=== PATIENT | female | born 1960 | race Caucasian/White ===

== ENCOUNTER 2023-10-31 11:16 | Outpatient (AMB) | payer OTHER, SELFPAY ==
--- NOTE | 2023-10-31 11:20 | A.OFFPC_ITS ---
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 Pill to stop drinking. Allergies sulfar Allergy (Unknown, Uncoded 10/31/23 11:22) unable to breath Medication List - Last Reconciled 10/31/23 by Belia Ramirez MD lorazepam 0.5 - 1 mg PO BEDTIME PRN mometasone 100 mcg/actuation (Asmanex HFA) 2 puffs inhalation BID trazodone 100 mg PO BEDTIME Tobacco use date assessed: 10/31/23 Dental Screening Dental Screen Date: 10/31/23 Did you have a dental visit in the last 12 months?: Yes Did you have a dental problem in the last 6 months where you did not have access to dental care?: No Was dental information given to patient?: Patient has dentist HPI HPI Comments History of Present Illness Details This is s a 63 year old female with a past medical history of anxiety, insomnia, arthritis presenting for physical exam Anxiety: On lorazepam Insomnia: Stable on trazodone Pulled back a few weeks ago. Using otc meds ice/heat. 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 1. Little interest or pleasure in doing things: not at all 2. Feeling down, depressed, or hopeless: not at all 3. Trouble falling or staying asleep, or sleeping too much: not at all 4. Feeling tired or having little energy: not at all 5. Poor appetite or overeating: not at all 6. Feeling bad about yourself - or that you are a failure or have let yourself or your family down: not at all 7. Trouble concentrating on things, such as reading the newspaper or watching television: not at all 8. Moving or speaking so slowly that other people could have noticed. Or the opposite - being so fidgety or restless that you have been moving around a lot more than usual: not at all 9. Thoughts that you would be better off or of hurting yourself in some way: not at all Total score: 0 Depression Screening Interpretation: Negative Depression Screening Done: Yes 30260 - PHQ-9 Billing: Yes Source: Developed by Drs. Arnoldo Martinez, Elana Fisher, Petey Meza and colleagues, with an educational celine from [employer]. Thrive Questionnaire Date Thrive assessed: 10/31/23 I am a: Patient Within the past 12 months, did the food you bought not last and you didn't have the money to get more?: Never true Within the past 12 months, did you worry whether your food would run out before you got money to buy more?: Never true Do you have trouble paying for medicines?: No Do you have trouble getting transportation to medical appointments?: No Do you have trouble paying your heating and electricity bill?: No Do you have trouble taking care of your child, family member or friend?: No Do you have trouble with day-to-day activities such as bathing, preparing meals, shopping, managing finances, etc.?: No Are you currently unemployed and looking for a job?: No Are you interested in more education?: No Please select the resources that you would like help with: None Currently or been in a relationship where the following occur: no concerns reported THRIVE Score: 0 AUDIT C Alcohol Use Questionnaire (AUDIT-C) 1. How often do you have a drink containing alcohol?: 2-3 times a week 2. How many drinks containing alcohol do you have on a typical day when you are drinking?: 5 or 6 3. How often do you have six or more drinks on one occasion?: Daily or almost daily Total Score: 9 KIAH-7 AMB Questionnaire KIAH-7 Date KIAH - 7 assessed: 10/31/23 Feeling nervous, anxious, or on edge: 1 = Several days Not being able to stop or control worryin = Several days Worrying too much about different things: 1 = Several days Trouble relaxin = Several days Being so restless that it is hard to sit still: 1 = Several days Becoming easily annoyed or irritable: 1 = Several days Feeling afraid as if something awful might happen: 1 = Several days Total KIAH-7 score (0-4 normal; 5-9 mild; 10-14 moderate; 15-21 severe): 7 Source: Developed by Drs. Arnoldo Martinez, Elana Fisher, Petey Meza and colleagues, with an educational celine from [employer]. KIAH-7 Assessment Billing KIAH-7 Assessment Tool: KIAH-7 Assessment 90208 ACT Questionnaire In the past 4 weeks, how much of the time did your asthma keep you from getting as much done at work, school or at home?: A little of the time During the past 4 weeks, how often have you had shortness of breath?: 3-6 times a week During the past 4 weeks, how often did your asthma symptoms wake you up at night or earlier than usual in the morning?: Not at all During the past 4 weeks, how often have you had to use your rescue inhaler or nebulizer medication?: Once a week or less How would you rate your asthma control during the past 4 weeks?: Somewhat controlled ACT Interpretation: Positive Score: 19 Review of Systems Const Details: ROS CONSTITUTIONAL: Denies weight loss, fever and chills. HEENT: Denies changes in vision and hearing. RESPIRATORY: Denies SOB and cough. CV: Denies palpitations and CP GI: Denies abdominal pain, nausea, vomiting and diarrhea. : Denies dysuria and urinary frequency. MSK: see HPI SKIN: Denies rash and pruritus. NEUROLOGICAL: Denies headache PSYCHIATRIC: Denies recent changes in mood. Physical exam (Primary Care) Vital Signs: Last Vital Signs Temp 98.6 F 10/31/23 11:29 Pulse 60 10/31/23 11:29 Resp 14 10/31/23 11:29 BP 102/68 10/31/23 11:29 Pulse Ox 98 10/31/23 11:29 Oxygen Delivery Method Room Air 10/31/23 11:29 PHYSICAL EXAM: GENERAL: Alert and oriented x 3. NAD EYES: EOMI. Anicteric. HENT: Moist mucous membranes. No scleral icterus. No cervical lymphadenopathy. LUNGS: Clear to auscultation bilaterally. CARDIOVASCULAR: Regular rate and rhythm. No murmur. No JVD. ABDOMEN: Soft, non-tender +bs EXTREMITIES: No edema. Non-tender. SKIN: No rashes or lesions. Warm. NEUROLOGIC: No focal neurological deficits. CN II-XII grossly intact PSYCHIATRIC: Cooperative. Appropriate mood and affect BMI result Body Mass Index 23.3 Tobacco/Smoking Status: Tobacco use Status Tobacco use date assessed 10/31/23 10/31/23 11:34 Patient Tobacco Use Status Former Tobacco user 10/31/23 11:34 e-Cigarette/Vaping Use Never Used 10/31/23 11:34 PHQ-9: PHQ-9 Score PHQ-9: Total score 0 10/31/23 16:11 Depression Screening Interpretation: Negative Thrive Assessment: Date of Thrive Assessment Date Thrive assessed 10/31/23 10/31/23 11:53 Currently or been in a relationship where the following occur: no concerns reported Assessment and Plan Assessment & Plan (1) Physical exam: Code(s): Z00.00 - Encounter for general adult medical examination without abnormal findings Plan: The patient was seen today for preventive annual exam. As part of this exam we assessed/discussed Screening for tobacco use and provide tobacco cessation interventions for those who use tobacco products. Screening for alcohol misuse and provide behavioral counseling interventions to reduce alcohol misuse in individuals who engage in risky or hazardous drinking. Screening for women of childbearing age for intimate partner violence, and those who screen positive should be provided with or referred to intervention services. Physicians should screen adults for depression when staff-assisted depression care supports are in place to ensure accurate diagnosis, effective treatment, and follow-up. All women planning or capable of should take a daily folic acid supplement of 400 to 800 mcg. High-risk sexually active adults should be counseled on risk reduction for sexually transmitted infections. High-risk women should be screened for: STI All adults 65 years and younger should be screened for human immunodeficiency virus. Adults should be screened for elevated body mass index. Patients with obesity should be offered intensive counseling and behavioral interventions to promote sustained weight loss. Adults should be screened for high blood pressure. Asymptomatic adults with sustained blood pressure greater than 135/80 mm Hg (treated or untreated) should be screened for type 2 diabetes mellitus. 36 Women 55 to 79 years of age should take approximately 75 mg of aspirin per day when the net benefit of ischemic stroke reduction outweighs the increased risk of gastrointestinal hemorrhage. Women should be screened for cervical cancer with Pap tests beginning at 21 years of age. Low-risk women should receive Pap testing every three years. Co- testing for human papillomavirus is an option beginning at 30 years of age, and can extend the screening interval to five years. Cervical cancer screening should be discontinued at 65 years of age or after total hysterectomy if the woman has a benign gynecologic history. Women 50 to 74 years of age should be screened for breast cancer with mammography biennially. Mammography should be considered in women 40 to 49 years of age based on each patient's values and the potential benefits and harms. Adults 50 to 75 years of age should be screened for colorectal cancer Routine screening for ovarian cancer with bimanual examination, transvaginal ultrasonography, or cancer antigen 125 testing is not recommended. Women 65 years and older should be screened for osteoporosis. (2) Moderate persistent asthma: Code(s): J45.40 - Moderate persistent asthma, uncomplicated Qualifiers: Asthma complication type: uncomplicated Qualified Code(s): J45.40 - Mod erate persistent asthma, uncomplicated (3) Insomnia: Code(s): G47.00 - Insomnia, unspecified (4) Anxiety: Code(s): F41.9 - Anxiety disorder, unspecified Orders: Orders Lipid Panel 10/31/23 F41.9 - Anxiety disorder, unspecified, G47.00 - Insomnia, unspecified, J45.40 - Moderate persistent asthma, uncomplicated, Z00.00 - Encounter for general adult medical examination without abnormal findings Hemoglobin A1c 10/31/23 E78.5 - Hyperlipidemia, unspecified, Z13.228 - Encounter for screening for other metabolic disorders Complete Blood Count Auto Diff 10/31/23 F41.9 - Anxiety disorder, unspecified, G47.00 - Insomnia, unspecified, J45.40 - Moderate persistent asthma, uncomplicated, Z00.00 - Encounter for general adult medical examination without abnormal findings Comprehensive Met. Panel 10/31/23 F41.9 - Anxiety disorder, unspecified, G47.00 - Insomnia, unspecified, J45.40 - Moderate persistent asthma, uncomplicated, Z00.00 - Encounter for general adult medical examination without abnormal findings Medications: New lorazepam 0.5 - 1 mg (1 - 2 x 0.5 mg) PO Q12H 28 days PRN 84 tabs 0RF anxiety naltrexone 50 mg PO DAILY 90 days 90 tabs 1RF prednisone 40 mg (2 x 20 mg) PO DAILY 5 days 10 tabs 0RF Coding Level of Care Code Est Pt Level 4 (25468) Complex EM visit Add On G2211 Diagnoses Physical exam Z00.00 Moderate persistent asthma without complication J45.40 Asthma complication type: uncomplicated Insomnia G47.00 Anxiety F41.9 Additional Codes KIAH-7 Assessment Billing - KIAH-7 Assessment Tool: KIAH-7 Assessment 29173 ([id number])
[2023-10-31 11:29] VITALS: BP 102/68; PULSE 60; RESP 14; TEMP 37; O2SAT 98; BMI 23.3
== END 2023-10-31 13:32 | disposition home or self-care (01) ==
PROVIDERS: PCP Internal Medicine; Visit Provider Internal Medicine
DX: Z00.00 Encounter for general adult medical examination without abnormal findings (principal); J45.40 Moderate persistent asthma, uncomplicated; G47.00 Insomnia, unspecified; F41.9 Anxiety disorder, unspecified
CPT/HCPCS: 99396

== ENCOUNTER 2023-10-31 12:16 | Outpatient (REF) | payer OTHER, SELFPAY ==
[2023-10-31 14:27] LABS: MANUAL DIFF FLAG NO
[2023-10-31 14:41] LABS: Basophils Percent Auto 0.4 % (0-2); Eosinophils Absolute Auto 0.1 X10*3/uL (0.0-0.4); Eosinophils Percent Auto 1.1 % (0-4); Hematocrit 41.5 % (37.0-47.0); Hemoglobin 13.9 g/dl (12.0-16.0); Imm Gran Abs Auto 0.01 X10*3/uL (0.00-0.03); Imm Gran Pct Auto 0.2 % (0.0-0.4); Lymphocytes Absolute Auto 1.8 X10*3/uL (1.2-4.9); Lymphocytes Percent Auto 34.3 % (20-40); Mean Corpuscular HGB Conc 33.5 g/dl (31.0-35.0); Mean Corpuscular Hemoglobin 30.9 pg (27.0-33.0); Mean Corpuscular Volume 92.2 fL (80.0-98.0); Mean Platelet Volume 10.1 fL (9.4-12.3); Monocytes Absolute Auto 0.4 X10*3/uL (0.1-1.2); Monocytes Percent Auto 7.9 % (2-11); Neutrophils Percent Auto 56.1 % (45-73); Platelet Count 309 X10*3/uL (160-400); White Blood Count 5.3 X10*3/uL (4.8-10.8)
[2023-10-31 14:47] LABS: Estimated Average Glucose 108 mg/dL; Hemoglobin A1c % 5.4 % (<6.0)
[2023-10-31 15:30] LABS: Alanine Aminotransferase 16 U/L (0-31); Albumin Level 4.6 g/dL (3.5-5.0); Alkaline Phosphatase 53 U/L (39-117); Anion Gap 15 (12-20); Aspartate Amino Transferase 18 U/L (5-31); Bilirubin Total 0.6 mg/dL (0.0-1.0); Blood Urea Nitrogen 13 mg/dL (9-16); Calcium 9.3 mg/dL (8.4-10.2); Carbon Dioxide 26 mmol/L (22-29); Chloride 105 mmol/L (96-108); Cholesterol 217 mg/dL (<200); Estimated Glomerular Filt Rate > 60; Glucose Random 92 mg/dL (60-115); HDL Cholesterol 80 mg/dL (>40); LDL Cholesterol Calculated 125 mg/dL (<100); Potassium 4.3 mmol/L (3.3-5.1); Sodium 142 mmol/L (135-145); Total Protein 7.1 g/dL (6.5-8.0); Triglycerides 64 mg/dL (<150)
== END 2023-10-31 12:17 | disposition home or self-care (01) ==
LOC: HO.WFDLDS 12:16
PROVIDERS: Visit Provider Internal Medicine
DX: Z00.00 Encounter for general adult medical examination without abnormal findings (principal); F41.9 Anxiety disorder, unspecified; G47.00 Insomnia, unspecified; J45.40 Moderate persistent asthma, uncomplicated; Z13.228 Encounter for screening for other metabolic disorders; E78.5 Hyperlipidemia, unspecified
CPT/HCPCS: 36415; 80053; 80061; 83036; 85025

== ENCOUNTER 2024-11-02 14:59 | Outpatient (AMB) | payer OTHER, SELFPAY ==
--- NOTE | 2024-11-02 15:08 | A.OFFPC_ITS ---
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 Is drinking less on naltrexone. Stopped completely for 2 months. Is looking for a new therapist. Previously saw therapist at [facility]. Did criteria for ADD and was borderline per patient. Insomnia: Stable on trazodone RAD is stable on asmanex Mammo: 09/2024-[facility]. Switching to [facility] this year Colonoscopy 05/27/2023-[address] Rey LDCT: 08/2023-needs new referral to [facility] ROS see HPI PHYSICAL EXAM: GENERAL: Alert and oriented x 3. NAD EYES: EOMI. Anicteric. HENT: Moist mucous membranes. No scleral icterus. No cervical lymphadenopathy. LUNGS: Clear to auscultation bilaterally. CARDIOVASCULAR: Regular rate and rhythm. No murmur. No JVD. ABDOMEN: Soft, non-tender +bs EXTREMITIES: No edema. Non-tender. SKIN: No rashes or lesions. Warm. NEUROLOGIC: No focal neurological deficits. CN II-XII grossly intact PSYCHIATRIC: Cooperative. 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 1. Little interest or pleasure in doing things: several days 2. Feeling down, depressed, or hopeless: several days 3. Trouble falling or staying asleep, or sleeping too much: not at all 4. Feeling tired or having little energy: not at all 5. Poor appetite or overeating: not at all 6. Feeling bad about yourself - or that you are a failure or have let yourself or your family down: not at all 7. Trouble concentrating on things, such as reading the newspaper or watching television: not at all 8. Moving or speaking so slowly that other people could have noticed. Or the opposite - being so fidgety or restless that you have been moving around a lot more than usual: not at all 9. Thoughts that you would be better off or of hurting yourself in some way: not at all Total score: 2 Depression Screening Interpretation: Negative Depression Screening Done: Yes 91059 - PHQ-9 Billing: Yes Source: Developed by Drs. Arnoldo Martinez, Elana Fisher, Petey Meza and colleagues, with an educational celine from [employer]. Thrive Questionnaire Date Thrive assessed: 10/30/24 I am a: Patient What is your living situation today?: I have a steady place to live Within the past 12 months, did the food you bought not last and you didn't have the money to get more?: Never true Within the past 12 months, did you worry whether your food would run out before you got money to buy more?: Never true Do you have trouble paying for medicines?: I choose not to answer this question Do you have trouble getting transportation to medical appointments?: No Do you have trouble paying your heating and electricity bill?: No Do you have trouble taking care of your child, family member or friend?: No Do you have trouble with day-to-day activities such as bathing, preparing meals, shopping, managing finances, etc.?: No Are you currently unemployed and looking for a job?: No Are you interested in more education?: No Please select the resources that you would like help with: None Currently or been in a relationship where the following occur: I choose not to answer THRIVE Score: 0 AUDIT C Alcohol Use Questionnaire (AUDIT-C) 1. How often do you have a drink containing alcohol?: 4 or more times a week 2. How many drinks containing alcohol do you have on a typical day when you are drinking?: 3 or 4 3. How often do you have six or more drinks on one occasion?: Daily or almost daily Total Score: 9 KIAH-7 AMB Questionnaire KIAH-7 Date KIAH - 7 assessed: 10/31/23 Feeling nervous, anxious, or on edge: 1 = Several days Not being able to stop or control worryin = Several days Worrying too much about different things: 1 = Several days Trouble relaxin = Several days Being so restless that it is hard to sit still: 0 = Not at all Becoming easily annoyed or irritable: 1 = Several days Feeling afraid as if something awful might happen: 0 = Not at all Total KIAH-7 score (0-4 normal; 5-9 mild; 10-14 moderate; 15-21 severe): 5 Source: Developed by Drs. Arnoldo Martinez, Elana Fisher, Petey Meza and colleagues, with an educational celine from [employer]. Physical exam (Primary Care) Vital Signs: Last Vital Signs Pulse 55 11/02/24 15:13 Resp 12 11/02/24 15:13 BP 128/68 11/02/24 15:13 Pulse Ox 95 11/02/24 15:13 Oxygen Delivery Method Room Air 11/02/24 15:13 BMI result Body Mass Index 20.8 Tobacco/Smoking Status: Tobacco use Status Tobacco use date assessed 11/02/24 11/02/24 15:16 Patient Tobacco Use Status Former Tobacco user 11/02/24 15:16 e-Cigarette/Vaping Use Never Used 11/02/24 15:16 PHQ-9: PHQ-9 Score PHQ-9: Total score 2 11/02/24 15:23 Depression Screening Interpretation: Negative Thrive Assessment: Date of Thrive Assessment Date Thrive assessed 10/30/24 11/02/24 15:16 Currently or been in a relationship where the following occur: I choose not to answer Coding Level of Care Code Est Pt Prev Care 40-64y(99470) Diagnoses Anxiety F41.9 Insomnia, unspecified type G47.00 Insomnia type: unspecified Hyperlipidemia, unspecified hyperlipidemia type E78.5 Hyperlipidemia type: unspecified Moderate persistent asthma without complication J45.40 Asthma complication type: uncomplicated Additional Codes PHQ-9 - 18469 - PHQ-9 Billing: Yes ([id number]) Assessment & Plan Assessment & Plan (1) Anxiety: Code(s): F41.9 - Anxiety disorder, unspecified Category: Medical (2) Insomnia: Code(s): G47.00 - Insomnia, unspecified Category: Medical Qualifiers: Insomnia type: unspecified Qualified Code(s): G47.00 - Insomnia, unspecified (3) Hyperlipidemia: Code(s): E78.5 - Hyperlipidemia, unspecified Category: Medical Qualifiers: Hyperlipidemia type: unspecified Qualified Code(s): E78.5 - Hyperlipidemia, unspecified (4) Moderate persistent asthma: Code(s): J45.40 - Moderate persistent asthma, uncomplicated Category: Medical Qualifiers: Asthma complication type: uncomplicated Qualified Code(s): J45.40 - Moderate persistent asthma, uncomplicated Plan 63 for CPE Chronic medical conditions stable Mammo UTD LDCT referral placed Labs ordered Orders: Orders TSH reflex Free T4 11/02/24 E78.5 - Hyperlipidemia, unspecified, F41.9 - Anxiety disorder, unspecified, G47.00 - Insomnia, unspecified, Z13.228 - Encounter for screening for other metabolic disorders Complete Blood Count Auto Diff 11/02/24 E78.5 - Hyperlipidemia, unspecified, F41.9 - Anxiety disorder, unspecified, G47.00 - Insomnia, unspecified, Z13.228 - Encounter for screening for other metabolic disorders Comprehensive Met. Panel 11/02/24 E78.5 - Hyperlipidemia, unspecified, F41.9 - Anxiety disorder, unspecified, G47.00 - Insomnia, unspecified, Z13.228 - Encounter for screening for other metabolic disorders Lipid Panel 11/02/24 E78.5 - Hyperlipidemia, unspecified, F41.9 - Anxiety disorder, unspecified, G47.00 - Insomnia, unspecified, Z13.228 - Encounter for screening for other metabolic disorders Hemoglobin A1c 11/02/24 E78.5 - Hyperlipidemia, unspecified, F41.9 - Anxiety disorder, unspecified, G47.00 - Insomnia, unspecified, Z13.228 - Encounter for screening for other metabolic disorders Referrals Lung Cancer Screening Referral Z87.891 - Personal history of nicotine dependence Medications: New dextroamphetamine-amphetamine 15 mg (Adderall) administer doses at least 4-6 hours apart; Partial Fill upon patient request. 15 mg PO BID 60 tabs 0RF
[2024-11-02 15:13] VITALS: BP 128/68; PULSE 55; RESP 12; O2SAT 95; BMI 20.8
== END 2024-11-02 15:45 | disposition home or self-care (01) ==
LOC: HO.HMCFM 14:59
PROVIDERS: PCP Internal Medicine; Visit Provider Internal Medicine
DX: Z00.00 Encounter for general adult medical examination without abnormal findings (principal); F41.9 Anxiety disorder, unspecified; G47.00 Insomnia, unspecified; E78.5 Hyperlipidemia, unspecified; J45.40 Moderate persistent asthma, uncomplicated

== ENCOUNTER → 2024-11-02 14:59 | Outpatient (BNVA) | payer OTHER, SELFPAY | PROVIDERS: PCP Internal Medicine; Visit Provider Internal Medicine | DX: Z00.00 Encounter for general adult medical examination without abnormal findings (principal); F41.9 Anxiety disorder, unspecified; G47.00 Insomnia, unspecified; E78.5 Hyperlipidemia, unspecified; J45.40 Moderate persistent asthma, uncomplicated; Z79.899 Other long term (current) drug therapy | CPT/HCPCS: 96127 ==

== ENCOUNTER 2024-11-04 07:56 | Outpatient (REF) | payer OTHER, SELFPAY ==
[2024-11-04 11:46] LABS: MANUAL DIFF FLAG NO
[2024-11-04 11:50] LABS: Basophils Percent Auto 0.7 % (0-2); Eosinophils Absolute Auto 0.1 X10*3/uL (0.0-0.4); Hematocrit 39.3 % (37.0-47.0); Imm Gran Abs Auto 0.01 X10*3/uL (0.00-0.03); Imm Gran Pct Auto 0.2 % (0.0-0.4); Lymphocytes Absolute Auto 1.4 X10*3/uL (1.2-4.9); Lymphocytes Percent Auto 30.9 % (20-40); Mean Corpuscular HGB Conc 33.1 g/dl (31.0-35.0); Mean Corpuscular Hemoglobin 31.3 pg (27.0-33.0); Mean Corpuscular Volume 94.7 fL (80.0-98.0); Mean Platelet Volume 10.3 fL (9.4-12.3); Monocytes Absolute Auto 0.4 X10*3/uL (0.1-1.2); Neutrophils Absolute Auto 2.6 x10*3/uL (2.0-8.3); Neutrophils Percent Auto 57.2 % (45-73); Platelet Count 253 X10*3/uL (160-400); Red Blood Count 4.15 X10*6/uL (4.20-5.50); Red Cell Distribution Width 12.7 % (11.0-16.0); White Blood Count 4.6 X10*3/uL (4.8-10.8)
[2024-11-04 12:00] LABS: Estimated Average Glucose 108 mg/dL; Hemoglobin A1c % 5.4 % (<6.0)
[2024-11-04 12:23] LABS: Alanine Aminotransferase 24 U/L (0-31); Albumin Level 4.1 g/dL (3.5-5.0); Alkaline Phosphatase 48 U/L (39-117); Anion Gap 12 (12-20); Aspartate Amino Transferase 27 U/L (5-31); Bilirubin Total 0.5 mg/dL (0.0-1.0); Blood Urea Nitrogen 12 mg/dL (9-16); Calcium 8.8 mg/dL (8.4-10.2); Carbon Dioxide 28 mmol/L (22-29); Chloride 110 mmol/L (96-108); Cholesterol 204 mg/dL (<200); Estimated Glomerular Filt Rate > 60; Glucose Random 86 mg/dL (60-115); HDL Cholesterol 91 mg/dL (>40); LDL Cholesterol Calculated 104 mg/dL (<100); Potassium 4.1 mmol/L (3.3-5.1); Sodium 146 mmol/L (135-145); TSH reflex Free T4 1.15 uIU/mL (0.32-4.0); Total Protein 6.1 g/dL (6.5-8.0); Triglycerides 45 mg/dL (<150)
== END 2024-11-04 07:57 | disposition home or self-care (01) ==
LOC: HO.WFDLDS 07:56
PROVIDERS: Visit Provider Internal Medicine
DX: F41.9 Anxiety disorder, unspecified (principal); G47.00 Insomnia, unspecified; Z13.228 Encounter for screening for other metabolic disorders; E78.5 Hyperlipidemia, unspecified; Z13.1 Encounter for screening for diabetes mellitus
CPT/HCPCS: 36415; 80053; 80061; 83036; 84443; 85025